=== PATIENT | male | born 1965 | race Caucasian/White ===

== ENCOUNTER 2024-01-27 04:13 | Day surgery (SDC) | payer OTHER ==
[2024-01-23 12:57] VITALS: BMI 29.5
[2024-01-27 07:43] VITALS: RESP 20
[2024-01-27] MEDS ORDERED: MIDAZOLAM HCL 2 MG/2 ML SINGLE DOSE VIAL ONE (10:03)
[2024-01-27] MEDS ORDERED: ONDANSETRON 4 MG/2 ML VIAL ONE (10:06)
[2024-01-27 11:59] VITALS: BP 156/96; PULSE 64; TEMP 97.1
== END 2024-01-27 11:45 | disposition home or self-care (01) ==
LOC: JASU-SURG 04:13
PROVIDERS: ATTEND Urology
PROC: 0TF3XZZ Fragmentation in Right Kidney Pelvis, External Approach (ICD-10-PCS; principal; 2024-01-27 12:30)
DX: N20.0 Calculus of kidney (principal)